=== PATIENT | female | born 1990 | race Two or more races ===

== ENCOUNTER 2018-05-14 13:27 | Emergency (ER) | payer OTHER ==
[~2018-05-14] VITALS: Ht 165.1 cm; Wt 88.5 kg
[2018-05-14 13:42] VITALS: BP 131/80
[2018-05-14] MEDS ORDERED: IBUPROFEN 800 MG TAB PO ONE (15:45)
== END 2018-05-14 18:09 | disposition home or self-care (01) ==
LOC: ER 13:27
DX: S62.112A Displaced fracture of triquetrum [cuneiform] bone, left wrist, initial encounter for closed fracture (principal); W17.89XA Other fall from one level to another, initial encounter; Y93.79 Activity, other specified sports and athletics; Y92.828 Other wilderness area as the place of occurrence of the external cause; Y99.8 Other external cause status
CPT/HCPCS: 29125; 73110; 73200; 81025